=== PATIENT | female | born 1930 | race Caucasian/White ===

== ENCOUNTER → 2016-05-15 | Outpatient (CLI) | payer MEDICARE, OTHER ==
[~2016-05-15] MED LIST: AMLOPIDINE PO; ANTIVERT 12.512.5 MG PO; ASPI325T6 PO; ASPIRIN 81M81 MG/TA2 PO; ASPIRIN E.C. 8181 MG PO; ATENOLOL50 MG PO; ATIVAN 0.50.5 MG/TAB PO; B-12500 MCG PO; BUMEX 1MG TA1 MG/TA1 PO; CARDIZEM CD 24240 MG PO; CARDIZEM ER 12120 MG PO; CARDIZEM HC90 MG/CAP PO; CEPHALEXIN500 M1 PO; CIPRO 500MG TA500 MG PO; CLOPIDOGREL PO; DOXYCYCLINE 10100 MG PO; FOLIC ACID0.4 MG PO; LASIX 40MG TABL40 MG PO; LEVAQUIN 5500 MG/TA1 PO; LINZESS145CAP; MELAT3MGTAB PO; NEXIUM 20MG CAP20 MG PO; NITROSTAT0.4 MG/TAB SL; NORCO 325 MG-51 TAB PO; NORCO 325 MG-7.1 TAB PO; NORVASC 5MG5 MG/TAB PO; PREDNISONE20 MG PO; PREMARIN .3MG0.3 MG PO; PREMARIN 0.60.625 M1 PO; PREMARIN 0.60.625 MG PO; PRIL40 PO; PRILOSEC40 MG PO; PRINIVIL40 MG PO; PROCTOZONE-HC2.5% RC; SYNTHROID0.075 MG/T PO; SYNTHROID0.088 MG/T PO; SYNTHROID0.1 MG/TAB PO; TENORMIN 2525 MG/TAB PO; TENORMIN 5050 MG/TAB PO; TOPROL XL 25MG25 MG PO; ULTRAM 50MG TAB50 MG PO; ZITHROMAX TRI-500 MG PO
== END ==
LOC: COL.RAD 14:12
DX: M25.551 Pain in right hip (principal)
CPT/HCPCS: J3301; Q9967

== ENCOUNTER 2017-07-29 10:19 | Emergency (ER) | payer MEDICARE, OTHER ==
[~2017-07-29] VITALS: Ht 160 cm; Wt 75.0 kg
[2017-07-29 10:22] VITALS: TEMP 98
[2017-07-29] MEDS ORDERED: ULTRAM 50MG TAB50 MG PO ×2 (11:21→11:23)
[2017-07-29 14:03] VITALS: BP 98/44; PULSE 70
== END 2017-07-29 14:04 | disposition home or self-care (01) ==
LOC: COL.ER 10:19
DX: S72.111A Displaced fracture of greater trochanter of right femur, initial encounter for closed fracture (principal); S80.01XA Contusion of right knee, initial encounter; S40.011A Contusion of right shoulder, initial encounter; R40.2412 Glasgow coma scale score 13-15, at arrival to emergency department; I48.91 Unspecified atrial fibrillation; I10 Essential (primary) hypertension; E78.5 Hyperlipidemia, unspecified; D64.9 Anemia, unspecified; Z90.710 Acquired absence of both cervix and uterus; Z98.890 Other specified postprocedural states; Z79.52 Long term (current) use of systemic steroids; W01.0XXA Fall on same level from slipping, tripping and stumbling without subsequent striking against object, initial encounter; Y92.009 Unspecified place in unspecified non-institutional (private) residence as the place of occurrence of the external cause

== ENCOUNTER → 2017-09-18 | Outpatient (CLI) | payer MEDICARE, OTHER ==
[~2017-09-18] MED LIST changes: +CIPRO 250MG TA250 MG PO; +COLACE 100100 MG/CAP PO; +IPRATROPIUM BROM3 M1 IH; +MS CONTIN 115 MG/TAB PO
== END ==
LOC: COL.RAD 14:30
DX: M19.011 Primary osteoarthritis, right shoulder (principal)
CPT/HCPCS: J3301; Q9967

== ENCOUNTER → 2017-09-25 | Outpatient (CLI) | payer MEDICARE, OTHER | LOC: COL.RAD 13:29 | DX: M13.811 Other specified arthritis, right shoulder (principal) | CPT/HCPCS: J3301; Q9967 ==

== ENCOUNTER 2017-11-27 12:40 | Emergency (ER) | payer MEDICARE, OTHER ==
[~2017-11-27] VITALS: Ht 160 cm; Wt 77.3 kg
[~2017-11-27 12:40] MED LIST changes: +AMOXICILLIN 8751 TAB PO; +OMNICEF 300MG300 MG PO; +PREDNISONE 5MG5 MG PO; -PRIL40 PO; +PRILOSEC 20MG20 MG PO; -SYNTHROID0.075 MG/T PO
[2017-11-27 12:41] VITALS: TEMP 98.3
[2017-11-27 13:52] LABS: MEAN CELL VOLUME 95 fl (80.0-100.0); MEAN CORPUSCULAR HGB CONC 30 g/dl (33.0-37.0); MEAN PLATELET VOLUME 9.2 fl (7.4-10.4); PLATELET COUNT 373 K/mm3 (130-400); REDCELL DISTRIBUTION WIDTH-CV 16.4 % (11.5-14.5)
[2017-11-27 13:57] LABS: HEMATOCRIT 32.4 % (37.0-47.0); HEMOGLOBIN 9.6 g/dl (12.5-16.0); INR 1.1 (0.8-3.0); MEAN CORPUSCULAR HEMOGLOBIN 28 pg (27.0-31.0); PROTHROMBIN TIME 12.2 SECONDS (9.7-12.8)
[2017-11-27 13:59] LABS: PARTIAL THROMBOPLASTIN TIME 27.6 SECONDS (26.0-37.0)
[2017-11-27 14:02] LABS: ALBUMIN 3.5 gm/dL (3.5-5.0); BILIRUBIN,TOTAL 0.7 mg/dL (0.0-1.0); CALCIUM 8.7 mg/dL (8.4-10.2); CREATININE, serum 0.85 mg/dL (0.52-1.25); TOTAL PROTEIN 6.6 gm/dL (6.4-8.2)
[2017-11-27 14:17] LABS: BAND 5 % (0-10); LYMPHOCYTE 5 % (20.0-51.0); NEUTROPHILS 90 % (42.0-75.2); PLATELET ESTIMATE NORMAL (NORMAL); POLYCHROMASIA 1+
[2017-11-27 14:48] VITALS: BP 136/68; PULSE 80
== END 2017-11-27 14:49 | disposition home or self-care (01) ==
LOC: COL.ER 12:40
PROVIDERS: Emergency Medicine
DX: R04.0 Epistaxis (principal); D64.9 Anemia, unspecified; I10 Essential (primary) hypertension; I48.91 Unspecified atrial fibrillation

== ENCOUNTER 2017-12-25 08:11 | Outpatient (CLI) | payer MEDICARE, OTHER ==
[~2017-12-25] VITALS: Ht 160 cm; Wt 76.5 kg
[2017-12-25 09:00] VITALS: BP 152/78; PULSE 81
[2017-12-25 09:25] LABS: MEAN CELL VOLUME 98 fl (80.0-100.0); MEAN CORPUSCULAR HGB CONC 29 g/dl (33.0-37.0); MEAN PLATELET VOLUME 8.9 fl (7.4-10.4); PLATELET COUNT 391 K/mm3 (130-400); RED BLOOD COUNT 3.01 M/mm3 (4.10-5.30); REDCELL DISTRIBUTION WIDTH-CV 17.6 % (11.5-14.5)
[2017-12-25 09:26] LABS: HEMATOCRIT 29.6 % (37.0-47.0); HEMOGLOBIN 8.5 g/dl (12.5-16.0); MEAN CORPUSCULAR HEMOGLOBIN 28 pg (27.0-31.0)
[2017-12-25 09:45] LABS: CALCIUM 9.2 mg/dL (8.4-10.2); CREATININE, serum 0.78 mg/dL (0.52-1.25); POTASSIUM 3.6 mmol/L (3.4-5.0)
[2017-12-25] MEDS ORDERED: BUMEX2 MG PO (09:53)
[2017-12-25] MEDS ORDERED: TENORMIN100 MG PO (09:53)
[2017-12-25] MEDS ORDERED: ALTACE 2.5MG T2.5 MG PO (09:54)
[2017-12-25] MEDS ORDERED: K-DUR20 MEQ PO (10:02)
[2017-12-25 10:15] VITALS: BP 125/55; PULSE 76
[2017-12-25 10:21] LABS: INR 1.1 (0.8-3.0); PROTHROMBIN TIME 12.9 SECONDS (9.7-12.8)
[2017-12-25 10:30] VITALS: BP 122/64; PULSE 78; TEMP 97
[2017-12-25 10:45] VITALS: BP 129/61; BP 134/61; PULSE 71; PULSE 78
== END 2017-12-25 11:58 | disposition home or self-care (01) ==
LOC: COL.RAD 08:11
PROVIDERS: Internal Medicine Cardiovascular Disease
DX: I34.0 Nonrheumatic mitral (valve) insufficiency (principal)
CPT/HCPCS: J2250; J3010

== ENCOUNTER 2018-03-05 09:21 | Day surgery (SDC) | payer MEDICARE, OTHER ==
[~2018-03-05] VITALS: Ht 160 cm; Wt 77.5 kg
[~2018-03-05 09:21] MED LIST changes: +ALTACE 2.5MG T2.5 MG PO; +BUMEX2 MG PO; +CARDIZEM CD 18180 MG PO; -CARDIZEM CD 24240 MG PO; +CYMBALTA 30MG30 MG PO; +FENTANYL 12MCG TD; +K-DUR20 MEQ PO; +MACROBID 1100 MG/CAP PO; +SYNTHROID0.075 MG/T PO; +TENORMIN100 MG PO
[2018-03-05] MEDS ORDERED: TENORMIN 5050 MG/TAB PO (10:09)
[2018-03-05] MEDS ORDERED: BUMEX 1MG TA1 MG/TA1 PO (10:10)
[2018-03-05] MEDS ORDERED: COLACE 100100 MG/CAP PO (10:22)
[2018-03-05] MEDS ORDERED: NATURAL FLAX1000 MG PO (10:23)
[2018-03-05] MEDS ORDERED: IPRATROPIUM BROM3 M1 IH (10:23)
[2018-03-05] MEDS ORDERED: ULTRAM 50MG TAB50 MG PO (10:24)
[2018-03-05 10:27] VITALS: BP 138/65; PULSE 78; TEMP 97.8
[2018-03-05 11:30] VITALS: BP 128/41; PULSE 83; TEMP 97.7
[2018-03-05 11:45] VITALS: BP 120/80; PULSE 90
[2018-03-05 12:00] VITALS: BP 129/48; PULSE 83
== END 2018-03-05 12:30 | disposition home or self-care (01) ==
LOC: SDCO 09:21
DX: K44.9 Diaphragmatic hernia without obstruction or gangrene (principal); I25.10 Atherosclerotic heart disease of native coronary artery without angina pectoris; I10 Essential (primary) hypertension; K21.9 Gastro-esophageal reflux disease without esophagitis; M19.90 Unspecified osteoarthritis, unspecified site; I48.91 Unspecified atrial fibrillation; D64.9 Anemia, unspecified; Z88.1 Allergy status to other antibiotic agents; Z88.8 Allergy status to other drugs, medicaments and biological substances; Z90.49 Acquired absence of other specified parts of digestive tract; Z90.710 Acquired absence of both cervix and uterus; Z96.653 Presence of artificial knee joint, bilateral; Z96.642 Presence of left artificial hip joint; Z86.73 Personal history of transient ischemic attack (TIA), and cerebral infarction without residual deficits; Z99.81 Dependence on supplemental oxygen; Z85.3 Personal history of malignant neoplasm of breast
CPT/HCPCS: J2704; J7030

== ENCOUNTER 2018-03-05 21:49 | Emergency (ER) | payer MEDICARE, OTHER ==
[~2018-03-05] VITALS: Ht 160 cm; Wt 77.3 kg
[~2018-03-05 21:49] MED LIST changes: +NATURAL FLAX1000 MG PO
[2018-03-05 22:09] LABS: HEMATOCRIT 35.8 % (37.0-47.0); HEMOGLOBIN 10.2 g/dl (12.5-16.0); MEAN CELL VOLUME 94 fl (80.0-100.0); MEAN CORPUSCULAR HEMOGLOBIN 27 pg (27.0-31.0); MEAN CORPUSCULAR HGB CONC 29 g/dl (33.0-37.0); PLATELET COUNT 493 K/mm3 (130-400); RED BLOOD COUNT 3.82 M/mm3 (4.10-5.30); REDCELL DISTRIBUTION WIDTH-CV 16.4 % (11.5-14.5)
[2018-03-05 22:14] LABS: ANISOCYTOSIS 1+; BAND 28 % (0-10); LYMPHOCYTE 11 % (20.0-51.0); NEUTROPHILS 56 % (42.0-75.2); PLATELET ESTIMATE INCREASED (NORMAL)
[2018-03-05 22:16] LABS: ALBUMIN 3.9 gm/dL (3.5-5.0); BILIRUBIN,TOTAL 0.9 mg/dL (0.0-1.0); CALCIUM 9.1 mg/dL (8.4-10.2); CREATININE, serum 0.94 mg/dL (0.52-1.25); POTASSIUM 4.6 mmol/L (3.4-5.0); TOTAL PROTEIN 6.8 gm/dL (6.4-8.2)
[2018-03-06 01:05] VITALS: BP 91/43; PULSE 93; TEMP 97.9
== END 2018-03-06 01:05 | disposition short-term general hospital (02) ==
LOC: COL.ER 21:49
PROVIDERS: Emergency Medicine
DX: K63.1 Perforation of intestine (nontraumatic) (principal); I48.91 Unspecified atrial fibrillation; I10 Essential (primary) hypertension; E03.9 Hypothyroidism, unspecified; K21.9 Gastro-esophageal reflux disease without esophagitis; Z85.3 Personal history of malignant neoplasm of breast; Z79.52 Long term (current) use of systemic steroids; Z90.49 Acquired absence of other specified parts of digestive tract; Z90.710 Acquired absence of both cervix and uterus; Z96.642 Presence of left artificial hip joint; Z96.653 Presence of artificial knee joint, bilateral
CPT/HCPCS: J1170; J2270; J2405; J2543; J2704; J3010; J7030; Q9967